=== PATIENT | female | born 1955 | race Caucasian/White ===

== ENCOUNTER 2018-11-17 10:41 | Emergency (ER) | payer MEDICARE ==
--- NOTE | 2018-11-17 11:20 | RAD ---
LEFT KNEE FOUR VIEWS: HISTORY: Knee pain and swelling. FINDINGS: Minimal spur formation in the medial compartment of the knee is seen. There is a small joint effusion . The bones appear demineralized. IMPRESSION: Small joint effusion with minimal arthritic changes of the knee. If indicated further evaluation with MRI for internal derangement is suggested. POS: TPC
--- NOTE | 2018-11-17 11:50 | ULT ---
LEFT LOWER EXTREMITY VENOUS DUPLEX EXAM: Date: 11/17/18 HISTORY: Left leg pain and swelling. FINDINGS: Real-time color Doppler of left lower extremity was performed from groin to calf. This includes evalu ation of the common femoral, superficial and profunda femoral, saphenous, popliteal, and posterior ti bial veins. This shows patent deep venous system. There is normal compressibility and augmentation. T here is no evidence of deep venous thrombosis. Incidental note is made of a Calix's cyst. IMPRESSION: 1. No evidence of deep venous thrombosis of the left lower extremity. 2. Calix's cyst. POS: TPC
== END 2018-11-17 12:25 | disposition home or self-care (01) ==
LOC: SCSER 10:41
DX: M71.22 Synovial cyst of popliteal space [Baker], left knee (principal)

== ENCOUNTER 2018-12-03 13:06 | Outpatient (CLI) | payer MEDICARE ==
--- NOTE | 2018-12-03 14:27 | MRI ---
MRI LEFT KNEE WITHOUT CONTRAST: INDICATIONS: Left knee pain. COMPARISON: None. FINDINGS: There are small marginal osteophytes affecting all major compartments of the left knee. There are pro minent areas of chondral thinning involving the medial patellar facet and portions of the medial femo ral condyle. There is a complete radial tear involving the posterior root of the medial meniscus with partial medial extrusion. The lateral meniscus appears intact. The ACL, PCL, LCLC and extensor mecha nism are intact. There is a prominent semimembranosus/medial gastrocnemius popliteal cyst. IT band an d popliteus appear within normal limits. IMPRESSION: 1. Mild osteoarthrosis of the left knee. 2. Medial meniscal tear. 3. Large popliteal cyst. POS: OFF
== END 2018-12-03 13:07 | disposition home or self-care (01) ==
LOC: SCSMRI 13:06
PROVIDERS: ATTEND Orthopaedic Surgery
DX: M25.562 Pain in left knee (principal); M71.22 Synovial cyst of popliteal space [Baker], left knee; M17.12 Unilateral primary osteoarthritis, left knee; S83.242A Other tear of medial meniscus, current injury, left knee, initial encounter

== ENCOUNTER 2019-01-14 07:40 | Day surgery (SDC) | payer MEDICARE ==
[2019-01-12 17:29] LABS: Anion Gap 10 mmol/L (10-20); BUN (Urea Nitrogen) 11 mg/dL (9.8-20.1); Calc. Creatinine Clearance 0 mL/min (70-130); Calcium 9.5 mg/dL (7.8-10.44); Carbon Dioxide 28 mmol/L (23-31); Chloride 104 mmol/L (98-107); Estimated GFR-MDRD 71; Glucose 97 mg/dL (80-115); Sodium 138 mmol/L (136-145)
[2019-01-12 18:44] LABS: #Eosinphils 0.2 thou/uL (0.0-0.7); #Monocytes 0.5 thou/uL (0.11-0.59); #Neutrophils 4.1 thou/uL (1.40-6.50); %Basophils 0.6 % (0.0-1.0); %Eosinophils 2.8 % (0.0-10.0); %Lymphocytes 29.3 % (21.0-51.0); %Monocytes 7.3 % (0.0-10.0); Hemoglobin 13.7 g/dL (12.0-16.0); Mean Corpuscular HGB CONC 33.5 g/dL (32.0-36.0); Mean Corpuscular Hemoglobin 32.3 pg (27.0-31.0); Mean Corpuscular Volume 96.4 fL (78.0-98.0); Mean Platelet Volume 7.1 fL (7.4-10.4); Platelet Count 255 thou/uL (130-400); RBC Distribution Width 11.1 % (11.5-14.5); Red Blood Cell (RBC) Count 4.25 mill/uL (4.20-5.40); White Blood Cell (WBC) Count 6.8 thou/uL (4.8-10.8)
[2019-01-14] MEDS ORDERED: Clindamycin/D5W 600 mg/50 ml Premix Bag ONE (09:26)
[2019-01-14] MEDS ORDERED: PROPOFOL 20 ML ONE ×2 (09:30→10:08)
[2019-01-14] MEDS ORDERED: Fentanyl 100 MCG/2 ML VIAL ONE (10:07)
[2019-01-14] MEDS ORDERED: Midazolam HCl 2 mg/2 ml Vial ONE (10:07)
[2019-01-14] MEDS ORDERED: Bupivacaine HCl 0.5%/Epinephrine 1:200,000/PF 30 ml Vial ONE (10:51)
[2019-01-14] MEDS ORDERED: Lidocaine 2% w/Epinephrine 1:200K 20 ML VIAL ONE (10:51)
--- NOTE | 2019-01-15 02:22 | OP ---
DATE OF PROCEDURE: 01/14/2019 POSTOPERATIVE DIAGNOSIS: Left knee degenerative arthrosis with unstable chondral flaps and degenerative meniscus tear. POSTOPERATIVE DIAGNOSIS: Left knee degenerative arthrosis in all three compartments of the knee with multiple unstable chondral flaps and multiple small free-floating fragments of cartilage. PROCEDURE PERFORMED: Left knee arthroscopy with debridement and shaving. MOWER SHARPENER: None. ESTIMATED BLOOD LOSS: Minimal. COMPLICATIONS: None. Patient did have a general anesthetic as well as a local knee block. She went to recovery room in stable condition. INDICATIONS: A 63-year-old female who has been having significant problems with pain and catching of the knee. At this time, an MRI scan showed to have a degenerative meniscal tear as well as some degenerative arthritic change in all compartments of the knee. At this time, she opted to have debridement of unstable chondral flaps. DESCRIPTION OF PROCEDURE: After all appropriate consent forms were explained and signed, she was taken to the operating room at this time, was given a general anesthetic. Once the level of anesthesia was appropriate, a tourniquet was placed on left thigh. Leg was placed in arthroscopic leg bello. The limb was then prepped and draped in a standard surgical fashion. Limb was exsanguinated and tourniquet taken up to 300 mmHg. Inferolateral portal was established. Scope was placed in the knee joint. Needle localization technique was then used to make a medial working portal. Diagnostic arthroscopy commenced in the notch. ACL and PCL probed, found to be intact. The medial compartment was entered and was found to have some significant degenerative arthrosis of the medial femoral condyle, more so along the medial weightbearing edge. As we went more towards the notch, the cartilage seemed to be in better shape. There were some grade 2 changes on the tibial plateau. The medial meniscus itself was found to be flat and fairly hard in consistency upon probing, but there was no discrete tear noted of the medial meniscus. All unstable chondral flaps were debrided from the femur at this time. The lateral compartment showed just the edge of the lateral meniscus posterior horn to be frayed. This was taken down with a shaver and the lateral compartment also showed some grade 2 changes of the lateral tibial plateau, but overall the lateral femoral condyle was in better condition on the medial side. Unstable chondral flaps were removed. The gutters were swept through. There were multiple small cartilaginous loose bodies floating in both medial and lateral gutters. These were all removed with a suction shaver device and any excessive synovitic changes were also debrided. The patellofemoral joint was then evaluated and the patient was found to have good cartilage on the top of the trochlea. As we went down towards the notch region, there was some significant grade 2 changes and fibrillation. The patella itself did have some global grade 2 changes, some unstable chondral flaps and these were debrided as well. At this time, we went through the knee one more time looking for any remaining loose pieces. There were none. Therefore, the camera was removed. Knee was drained. Portals were closed with simple nylon stitch. Bulky sterile dressing was applied. Tourniquet was let down. Toes pinked up nicely. Patient was awakened. She was taken to recovery room in stable condition. All counts were correct at the end of the case. She did receive preoperative IV antibiotics. Job ID: [id number]
== END 2019-01-14 12:04 | disposition home or self-care (01) ==
LOC: SDC 07:40
PROVIDERS: ATTEND Orthopaedic Surgery
PROC: 0SBD4ZZ Excision of Left Knee Joint, Percutaneous Endoscopic Approach (ICD-10-PCS; principal; 2019-01-14)
DX: M23.352 Other meniscus derangements, posterior horn of lateral meniscus, left knee (principal); M17.12 Unilateral primary osteoarthritis, left knee; M23.8X2 Other internal derangements of left knee; Z88.0 Allergy status to penicillin
CPT/HCPCS: 36415; 80048; 85025; J2250; J2704; J3010; J3490

== ENCOUNTER 2021-02-12 16:04 | Outpatient (CLI) | payer MEDICARE ==
[2021-02-12 17:19] LABS: #Eosinphils 0.1 10x3/uL (0.0-0.5); #Monocytes 0.6 10x3/uL (0.0-1.1); #Neutrophils 6.8 10x3/uL (1.5-8.4); %Basophils 0.5 % (0.0-2.0); %Lymphocytes 12.8 % (18.0-47.0); %Monocytes 6.9 % (0.0-10.0); %Neutrophils 78.5 % (40.0-75.0); Hemoglobin 13.9 g/dL (12.0-15.5); Mean Corpuscular HGB CONC 32.5 g/dL (32.0-36.0); Mean Corpuscular Hemoglobin 30.5 pg (27.0-33.0); Mean Corpuscular Volume 94.1 fl (81.6-98.3); Mean Platelet Volume 9.4 fl (7.4-10.4); Platelet Count 320 10x3/uL (150-450); Red Blood Cell (RBC) Count 4.55 10x6/uL (3.90-5.03); White Blood Cell (WBC) Count 8.7 10x3/uL (3.5-10.5)
[2021-02-12 17:30] LABS: Anion Gap 16 mmol/L (10-20); BUN (Urea Nitrogen) 16 mg/dL (9.8-20.1); Calc. Creatinine Clearance 0 mL/min (70-130); Calcium 9.7 mg/dL (7.8-10.44); Carbon Dioxide 25 mmol/L (23-31); Chloride 102 mmol/L (98-107); Glucose 114 mg/dL (80-115); Potassium 4.6 mmol/L (3.5-5.1); Sodium 138 mmol/L (136-145)
[2021-02-13 12:51] LABS: SARS-CoV-2 PCR by NAA Not Detected (NotDetected)
== END 2021-02-12 16:05 | disposition home or self-care (01) ==
LOC: LABBT 16:04
PROVIDERS: ATTEND Orthopaedic Surgery
DX: Z01.818 Encounter for other preprocedural examination (principal); S82.842A Displaced bimalleolar fracture of left lower leg, initial encounter for closed fracture; Z20.822 Contact with and (suspected) exposure to COVID-19
CPT/HCPCS: 71046; 80048; 85025; U0003; U0005; 93005; 93010

== ENCOUNTER 2021-02-15 08:26 | Day surgery (SDC) | payer MEDICARE ==
[2021-02-13 13:26] VITALS: BMI 25.5
[2021-02-15] MEDS ORDERED: Clindamycin/D5W 600 mg/50 ml Premix Bag ONE (09:29)
[2021-02-15] MEDS ORDERED: Fentanyl 100 MCG/2 ML VIAL ONE ×4 (09:55→14:02)
[2021-02-15] MEDS ORDERED: Midazolam HCl 2 mg/2 ml Vial ONE (09:55)
[2021-02-15] MEDS ORDERED: Ketorolac Tromethamine 30 MG/ML VIAL ONE (11:13)
[2021-02-15] MEDS ORDERED: Ondansetron PF 4 MG/2 ML Vial ONE (11:13)
[2021-02-15] MEDS ORDERED: Ropivacaine 0.5% HCl/PF (150 MG/30 ML VIAL) ONE (11:13)
[2021-02-15] MEDS ORDERED: PROPOFOL 200 MG/20 ML VIAL ONE (11:13)
[2021-02-15] MEDS ORDERED: Lidocaine 1% PF 5 ML VIAL ONE (11:13)
[2021-02-15] MEDS ORDERED: Bupivacaine HCl 0.5%/Epinephrine 1:200,000/PF 30 ml Vial ONE (11:13)
[2021-02-15] MEDS ORDERED: Dexamethasone 20 MG/5 ML VIAL ONE (11:13)
[2021-02-15] MEDS ORDERED: Zolpidem Tartrate 5 MG TAB PO PRN (11:15)
[2021-02-15] MEDS ORDERED: Ropivacaine 0.2% 550 ML 550 ML NERVE BLCK SCH (11:15)
[2021-02-15] MEDS ORDERED: traMADol HCl 50 MG TAB PO PRN ×2 (11:15)
[2021-02-15] MEDS ORDERED: Promethazine HCl 25 MG/ML VIAL IM PRN ×2 (11:15→13:37)
[2021-02-15] MEDS ORDERED: HYDROcodone/Acetaminophen 5/325 mg Tablet PO PRN ×2 (11:15)
[2021-02-15] MEDS ORDERED: Ketorolac Tromethamine 30 MG/ML VIAL IVP PRN (11:15)
[2021-02-15] MEDS ORDERED: Ondansetron PF 4 MG/2 ML Vial IVP PRN (11:15)
[2021-02-15] MEDS ORDERED: Ondansetron HCl/PF 4 MG/2 ML Vial IVP PRN (13:37)
[2021-02-15] MEDS ORDERED: Promethazine HCl 25 MG/ML VIAL IVPB PRN (13:37)
[2021-02-15] MEDS ORDERED: HYDROcodone/Acetaminophen 5/325 mg Tablet ONE (15:40)
== END 2021-02-15 16:20 | disposition home or self-care (01) ==
LOC: SDC 08:26
PROVIDERS: ATTEND Orthopaedic Surgery
PROC: 0QSK04Z Reposition Left Fibula with Internal Fixation Device, Open Approach (ICD-10-PCS; principal; 2021-02-15)
PROC: 0QSH04Z Reposition Left Tibia with Internal Fixation Device, Open Approach (ICD-10-PCS; 2021-02-15)
PROC: 3E0T3BZ Introduction of Anesthetic Agent into Peripheral Nerves and Plexi, Percutaneous Approach (ICD-10-PCS; 2021-02-15)
PROC: 3E0T3BZ Introduction of Anesthetic Agent into Peripheral Nerves and Plexi, Percutaneous Approach (ICD-10-PCS; 2021-02-15)
DX: S82.842A Displaced bimalleolar fracture of left lower leg, initial encounter for closed fracture (principal); R56.9 Unspecified convulsions; Z79.899 Other long term (current) drug therapy; Z88.0 Allergy status to penicillin; W19.XXXA Unspecified fall, initial encounter
CPT/HCPCS: 27814; 64446; 64447; 73610; 76000; 97116; 97139; A4306; C1713 ×4; C1769; J1100; J1885; J2250; J2405; J2704; J2795; J3010; J3490